=== PATIENT | male | born 1945 | race Caucasian/White ===

== ENCOUNTER → 2021-11-19 18:14 | Outpatient (CLI) | payer OTHER, SELFPAY ==
[2021-11-19 19:09] LABS: Influenza A - CEPHEID Flu A NEGATIVE (NEGATIVE); Influenza B - CEPHEID Flu B NEGATIVE (NEGATIVE)
== END ==
PROVIDERS: Visit Provider Nurse Practitioner Family
DX: R50.9 Fever, unspecified (principal)
CPT/HCPCS: 87502